=== PATIENT | male | born 1960 | race Caucasian/White ===

== ENCOUNTER 2018-04-20 12:47 | Outpatient (CLI) | payer MEDICARE ==
[~2018-04-20 12:47] MED LIST: FLAX1CAP4 PO; IBUP-1984 PO; MULT-1085 PO
== END 2018-04-20 23:59 | disposition home or self-care (01) ==
LOC: CARD DIAG 12:47
PROVIDERS: ATTEND Internal Medicine Hematology
DX: I08.1 Rheumatic disorders of both mitral and tricuspid valves (principal); I49.3 Ventricular premature depolarization
CPT/HCPCS: 93005; 93306